=== PATIENT | male | born 1980 | race Caucasian/White ===

== ENCOUNTER 2020-04-20 08:05 | Day surgery (SDC) | payer SELFPAY ==
[2020-04-20 08:10] VITALS: BP 122/78; PULSE 55; RESP 18; TEMP 36.4; O2SAT 99; BMI 22.9
[2020-04-20] MEDS: sodium chloride 0.9% 1,000 ML 30 ML IV (08:21)
--- NOTE | 2020-04-20 08:26 | P.ANESASSM_ITS ---
Pre-Anesthetic Assessment Pre-Anesthetic Assessment: Height/Weight: Height 1.78 m Weight 72.575 kg Temp Pulse Resp BP Pulse Ox 97.5 F L 55 L 18 122/78 99 04/20/20 08:10 04/20/20 08:10 04/20/20 08:10 04/20/20 08:10 04/20/20 08:10 Preop Diagnosis: Abdominal pain Proposed Procedure: Operation Date: 04/20/20 09:00 Proposed Procedures p [id number] esophagogastroduodenoscopy with possible biopsy K29.70(Not Applicable) - Royer Hicks MD Familial anesthetic complications: None Was Beta Ольга taken within 24 hours: N/A Last intake: Intake Last Liquid Date 04/19/20 Last Liquid Time 20:00 Last Solid Date 04/19/20 Last Solid Time 19:30 Social: Social History: Tobacco and No alcohol Exam: Pre-Anes Outpt Exam: alert, oriented x 3, clear to auscultation bilaterally and regular rate & rhythm Airway: Cervical ROM: WNL MP: 2 Dentition: Full GI: GI: GERD Neuropsych: Neuropsych: Depression Anesthetic Plan: ASA status: 2 Anesthesia: MAC Meds/Allergies Current Medications: Current Medications Generic Name Dose Route Start Last Admin Trade Name Freq PRN Reason Stop Dose Admin Sodium Chloride 1,000 mls @ 30 ml s/hr 04/20/20 08:15 04/20/20 08:21 Sodium Chloride 0.9% IV 04/21/20 08:14 30 mls/hr .Q24H ARSALAN Administration PFSH Anesthesia PFSH: Medical History Depression Gastritis Surgical History History of ear surgery ear [facility] Family History Grandfather Cancer colon Diabetes CAD (coronary artery disease) Denies family history of Anesthesia complication Bleeding disorder Social History Smoking and tobacco status: current every day smoker Alcohol intake: former Household members: significant other Marital status: Single Current occupational status: employed Current occupation: [employer] History of recent travel: No Data Anesthesia Cardiac Studies: No Data to Display
--- NOTE | 2020-04-20 09:12 | W.PM.OPSUD ---
Surgery/Procedure H&P Update DATE OF PROCEDURE: April 20, 2020 DATE H&P PERFORMED: 04/11/20 H&P UPDATE INFORMATION: I have reviewed H&P completed within last 30 days, I have examined patient prior to procedure and No changes to prior documentation PREOP DIAGNOSIS: Abdominal pain PLANNED PROCEDURE: Operation Date: 04/20/20 09:00 Proposed Procedures p [id number] esophagogastroduodenoscopy with possible biopsy K29.70(Not Applicable) - Royer Hicks MD
--- NOTE | 2020-04-20 09:25 | ANE.PACU2 ---
Inpatient post-anesthesia follow up: Airway intact: Yes Vital signs: Temperature 97.5 F Pulse Rate 55 Respiratory Rate 18 Blood Pressure 122/78 Pulse Oximetry 99 Oxygen Delivery Me thod Room Air Oxygen Flow Rate Fraction of Inspir ed Oxygen Hydration adequate: Yes Nausea and vomiting: No Pain level: 1 Mental status: Baseline
[2020-04-20 09:30] VITALS: BP 109/66; PULSE 53; RESP 16; TEMP 36.4; O2SAT 96
[2020-04-20 09:45] VITALS: BP 128/91; PULSE 52; RESP 16; TEMP 36.5; O2SAT 97
== END 2020-04-20 10:10 | disposition home or self-care (01) ==
PROVIDERS: PCP Family Medicine; Visit Provider Surgery
PROC: 0DJ08ZZ Inspection of Upper Intestinal Tract, Via Natural or Artificial Opening Endoscopic (ICD-10-PCS; CPT 43235; principal; 2020-04-20 09:00)
DX: R10.13 Epigastric pain (principal); K21.9 Gastro-esophageal reflux disease without esophagitis; F32.9 Major depressive disorder, single episode, unspecified; K22.2 Esophageal obstruction; K44.9 Diaphragmatic hernia without obstruction or gangrene; F17.210 Nicotine dependence, cigarettes, uncomplicated
CPT/HCPCS: 12345; 43239; 88305; J2704; J7030